=== PATIENT | female | born 1985 | race Caucasian/White ===

== ENCOUNTER 2017-04-05 10:17 | Outpatient (CLI) | payer BC ==
--- NOTE | 2017-04-05 11:10 | Non Stress Test Report ---
Non Stress Test Datetime Report Generated by CPN: 04/05/2017 11:09 DEMOGRAPHIC EGA NST: 38.2 INDICATION Indication for Study: Ordered by Provider MONITORING Monitor Explained: Monitor Explained; Test Explained; Patient Verbalized Understanding Time on Monitor: 04/05/2017 10:36 Time off Monitor: 04/05/2017 11:00 NST Duration: 24 NST INTERVENTIONS NST Interventions: PO Hydration Physician Notified NST: H. Boone, CNM BABY A: [id number] BABY A Movement : Present Contraction Frequency : none FHR Baseline : 130 Accelerations : 15X15 Decelerations : None Variability : Moderate 6-25bpm NST Review: Meets Criteria for Reactive NST NST Review and Verified By : BOBBY Thornton Results: Reactive NST REPORT Report Trigger: Send Report
[2017-04-05 12:12] LABS: APPEARANCE,URINE CLEAR; BILIRUBIN,URINE NEGATIVE (NEGATIVE); COLOR,URINE STRAW; GLUCOSE, URINE NEGATIVE (NEGATIVE); KETONES,URINE NEGATIVE (NEGATIVE); LEUKOCYTE ESTERASE,URINE NEGATIVE (NEGATIVE); NITRITE,URINE NEGATIVE (NEGATIVE); PROTEIN,URINE NEGATIVE (NEGATIVE); URINE SPECIFIC GRAVITY 1.003; UROBILINOGEN,URINE NEGATIVE mg/dL (<2.0)
[2017-04-05 12:29] LABS: URINE AMPHETAMINES SCREEN NEGATIVE; URINE BARBITURATES SCREEN NEGATIVE; URINE BENZODIAZEPINES SCREEN NEGATIVE; URINE COCAINE SCREEN NEGATIVE; URINE MARIJUANA (THC) SCREEN NEGATIVE; URINE METHADONE SCREEN NEGATIVE; URINE PHENCYCLIDINE SCREEN NEGATIVE
[2017-04-05 12:36] LABS: UR PRO/CREAT RATIO RESULT 0.8 mg/mg (0.0-0.2); URINE CREATININE 18.8 mg/dL (16-327); URINE PROTEIN 14.4 mg/dL (<12)
[2017-04-05] MEDS ORDERED: MEASLES,MUMPS&RUBELLA VACC/PF 0.5 ML VIAL SUBCUT PRN ×2 (19:23→20:45)
[2017-04-05] MEDS ORDERED: OXYCODONE-ACETAMINOPHEN 5-325 MG TABLET PO PRN ×4 (19:23→20:45)
[2017-04-05] MEDS ORDERED: SIMETHICONE 80 MG TAB.CHEW PO PRN ×2 (19:23→20:45)
[2017-04-05] MEDS ORDERED: DIPH/PERTUSS(ACELL)/TETANUS VAC/PF 0.5 ML SYR (>=10YO) IM PRN ×2 (19:23→20:45)
[2017-04-05] MEDS ORDERED: ACETAMINOPHEN 325 MG TABLET PO PRN ×2 (19:23→20:45)
[2017-04-05] MEDS ORDERED: PROMETHAZINE HCL INJ 25 MG/1 ML VIAL IV PRN ×2 (19:23→20:45)
[2017-04-05] MEDS ORDERED: OXYTOCIN/NORMAL SALINE 1,000 ML IV PRN ×2 (19:23→20:45)
[2017-04-05] MEDS ORDERED: RINGERS SOLUTION,LACTATED 1,000 ML IV PRN (19:24)
[2017-04-05] MEDS ORDERED: ZOLPIDEM TARTRATE 5 MG TABLET PO PRN (19:31)
[2017-04-05] MEDS ORDERED: BENZOCAINE/MENTHOL AEROSOL SPRAY 56 ML TOP PRN (19:31)
[2017-04-05] MEDS ORDERED: DIBUCAINE 1% OINTMENT 28 GM TP PRN (19:31)
[2017-04-05] MEDS ORDERED: ACETAMINOPHEN WITH CODEINE #3 TABLET PO PRN ×2 (19:31)
[2017-04-05] MEDS ORDERED: IBUPROFEN 800 MG TABLET PO SCH (22:00)
[2017-04-06] MEDS ORDERED: SENNOSIDES/DOCUSATE 8.6-50 MG 1 EACH TABLET PO SCH (10:00)
[2017-04-06] MEDS ORDERED: FERROUS SULFATE 325 MG TABLET PO SCH (10:00)
[2017-04-06] MEDS ORDERED: DOCUSATE SODIUM 100 MG CAPSULE PO SCH ×2 (10:00)
[2017-04-06] MEDS ORDERED: PRENATAL VITAMIN W DHA CAPSULE PO SCH ×2 (10:00)
== END 2017-04-05 12:08 | disposition home or self-care (01) ==
LOC: LC 10:17
PROVIDERS: ATTEND Obstetrics & Gynecology
PROC: 4A1HXCZ Monitoring of Products of Conception, Cardiac Rate, External Approach (ICD-10-PCS; principal; 2017-04-05)
DX: O14.93 Unspecified pre-eclampsia, third trimester (principal); Z3A.38 38 weeks gestation of pregnancy
CPT/HCPCS: 36415; 59025; 80053; 80307; 81001; 82570; 83615; 84156; 84550; 85025

== ENCOUNTER 2017-04-05 14:09 | Inpatient (IN) | payer BC ==
[2017-04-05] MEDS ORDERED: RINGERS SOLUTION,LACTATED 1,000 ML IV PRN (15:26)
[2017-04-05] MEDS ORDERED: RINGERS SOLUTION,LACTATED 300 ML IV ONE (15:26)
[2017-04-05] MEDS ORDERED: METOCLOPRAMIDE HCL INJ/PF 10 MG/2 ML SDV IV ONE (15:28)
[2017-04-05] MEDS ORDERED: CITRIC ACID/SODIUM CITRATE ORAL SOLN 15 ML UDCUP PO ONE (15:28)
[2017-04-05] MEDS ORDERED: FAMOTIDINE INJ/PF 20 MG/2 ML SDV IV ONE ×2 (15:28→16:47)
[2017-04-05 15:59] LABS: ABSOLUTE BASOPHILS # (AUTO) 0.1 10^3/uL (0.0-0.2); ABSOLUTE LYMPHOCYTES (AUTO) 2.2 10^3/uL (0.5-4.7); ABSOLUTE MONOCYTES (AUTO) 0.4 10^3/uL (0.1-1.4); ABSOLUTE NEUT (AUTO) 8.1 10^3/uL (1.7-8.2); BASOPHILS % (AUTO) 0.8 % (0-2); EOSINOPHILS % (AUTO) 0.5 % (0-6); HEMOGLOBIN 13.4 g/dL (12.0-15.5); LYMPHOCYTES % (AUTO) 20.1 % (13-45); MEAN CORPUSCULAR HEMOGLOBIN 32.7 pg (27.0-33.4); MEAN CORPUSCULAR HGB CONC 34.4 g/dL (32.0-36.0); MEAN CORPUSCULAR VOLUME 95 fl (80-97); MONOCYTES % (AUTO) 3.3 % (3-13); PLATELET COUNT 228 10^3/uL (150-450); RED CELL DISTRIBUTION WIDTH 13.7 % (11.5-14.0); SEGMENTED NEUTROPHILS % (AUTO) 75.3 % (42-78); TOTAL CELLS COUNTED % (AUTO) 100 %; WHITE BLOOD COUNT 10.7 10^3/uL (4.0-10.5)
[2017-04-05 16:19] LABS: ALANINE AMINOTRANSFERASE 28 U/L (9-52); ALBUMIN 3.4 g/dL (3.5-5.0); ALKALINE PHOSPHATASE 245 U/L (38-126); ANION GAP 9 (5-19); ASPARTATE AMINO TRANSFERASE 17 U/L (14-36); BILIRUBIN,DIRECT 0.3 mg/dL (0.0-0.4); BILIRUBIN,TOTAL 0.4 mg/dL (0.2-1.3); BLOOD UREA NITROGEN 8 mg/dL (7-20); CALCIUM 8.9 mg/dL (8.4-10.2); CARBON DIOXIDE 23 mmol/L (22-30); CHLORIDE 105 mmol/L (98-107); GLUCOSE 119 mg/dL (75-110); LDH 418 U/L (313-618); POTASSIUM 3.7 mmol/L (3.6-5.0); SODIUM 137.1 mmol/L (137-145); TOTAL PROTEIN 6.1 g/dL (6.3-8.2); URIC ACID 5.4 mg/dL (2.5-6.2)
[2017-04-05] MEDS ORDERED: CITRIC ACID/SODIUM CITRATE ORAL SOLN 15 ML UDCUP ONE (16:46)
[2017-04-05] MEDS ORDERED: METOCLOPRAMIDE HCL INJ/PF 10 MG/2 ML SDV ONE (16:46)
[2017-04-05] MEDS ORDERED: CEFAZOLIN 2 GM/D5W RTU 2 GM/50 ML RTUPB IV ONE (16:47)
[2017-04-05] MEDS ORDERED: OXYTOCIN 10 UNIT/ML VIAL ONE (17:14)
[2017-04-05] MEDS ORDERED: BUPIVACAINE HCL/DEX-WATER/PF 15 MG/2 ML AMPULE ONE (17:14)
[2017-04-05] MEDS ORDERED: OXYTOCIN/NORMAL SALINE 20 UNIT/1,000 ML RTUINJ ONE (17:14)
[2017-04-05] MEDS ORDERED: PHENYLEPHRINE HCL INJ/PF 10 MG/1 ML SDV ONE (17:41)
[2017-04-05] MEDS ORDERED: ONDANSETRON HCL INJ/PF 4 MG/2 ML SDV ONE (17:41)
[2017-04-05] MEDS ORDERED: PROMETHAZINE HCL INJ 25 MG/1 ML VIAL IV PRN (18:32)
[2017-04-05] MEDS ORDERED: OXYCODONE-ACETAMINOPHEN 5-325 MG TABLET PO PRN ×2 (18:32)
[2017-04-05] MEDS ORDERED: MEASLES,MUMPS&RUBELLA VACC/PF 0.5 ML VIAL SUBCUT PRN (18:32)
[2017-04-05] MEDS ORDERED: ACETAMINOPHEN 325 MG TABLET PO PRN (18:32)
[2017-04-05] MEDS ORDERED: ACETAMINOPHEN 100 ML IV PRN (18:32)
[2017-04-05] MEDS ORDERED: HYDROMORPHONE HCL INJ/PF 2 MG/ML AMPULE IV PRN (18:32)
[2017-04-05] MEDS ORDERED: OXYTOCIN/NORMAL SALINE 20 UNIT/1,000 ML RTUINJ IV PRN (18:32)
[2017-04-05] MEDS ORDERED: SIMETHICONE 80 MG TAB.CHEW PO PRN (18:32)
[2017-04-05] MEDS ORDERED: DIPH/PERTUSS(ACELL)/TETANUS VAC/PF 0.5 ML SYR (>=10YO) IM PRN (18:32)
[2017-04-05] MEDS ORDERED: ACETAMINOPHEN 100 ML IV ONE (18:40)
--- NOTE | 2017-04-05 19:28 | Delivery Summary ---
Del Sum A-C Datetime Report Generated by CPN: 04/05/2017 19:28 DELIVERY PERSONNEL DELIVERY PERSONNEL: [id number] Delivery Doctor:: Jolene Finnegan MD Anesthesiologist:: Betzaida Barrios MD HARNESS INSPECTOR:: Akbar Benitez Labor and Delivery Nurse:: Dora Lew RNoffshore wind operations manager Nurse:: Kelli Finnegan RN Box Car Bracer:: Dora Lew RN Nursery Nurse:: Jasmyne Brownlee RN Nursery Nurse:: Claire Srivastava RN Salon Shampoo Assistant/GOVERNMENT AUDITOR: ST Ritesh Salon Shampoo Assistant/GOVERNMENT AUDITOR: Tara Canseco, POTTERY KILN BUILDER MATERNAL INFORMATION Delivery Anesthesia: Spinal Medications After Delivery: Pitocin Drip 20 Units/1000ml NSS Estimated Blood Loss (ml): 700 Maternal Complications: Other Other Maternal Complications: Pre-E LABOR SUMMARY EDC: 04/17/2017 00:00 No. Babies in Womb: 1 Attempted: No Labor Anesthesia: None LABOR INFORMATION Reason for Induction: Not Applicable Oxytocin: N/A Group B Beta Strep: positive Antibiotics # of Doses: 1 Antibiotics Time of Last Dose: 165 Name of Antibiotic Given: Ancef Steroids Given: None Reason Steroids Not Administered: Not Applicable MEMBRANES Membranes Rupture Method: Artificial Rupture of Membranes: 04/05/2017 17:28 Length of Rupture (hr): 0.02 Amniotic Fluid Color: Clear Amniotic Fluid Amount: None Amniotic Fluid Odor: Normal STAGES OF LABOR Stage 3 hr: 0 Stage 3 min: 1 VAGINAL DELIVERY Episiotomy: None Laceration #1: None Laceration Extension #1: N/A Laceration Repair: Not Applicable Sponge Count Correct: N/A Sharps Count Correct: N/A CSECTION DELIVERY Primary Indication: Repeat Secondary Indication: Preeclampsia CSection Urgency: Non-Scheduled CSection Incidence: Repeat Labor: No Labor Elective: Nonelective CSection Incision: Lower Uterine Transverse BABY A INFORMATION Infant Delivery Date/Time: 04/05/2017 17:29 Method of Delivery: Born in Route : No : N/A Forceps: N/A Vacuum Extraction: N/A Shoulder Dystocia : No PRESENTATION/POSITION BABY A Presentation: Cephalic Cephalic Presentation: Vertex Breech Presentation: N/A PLACENTA INFORMATION BABY A Placenta Delivery Time : 04/05/2017 17:30 Placenta Method of Delivery: Manual Removal Placenta Status: Delivered SCORES BABY A Heart Rate 1 min: >100 bpm Resp Effort 1 min: Slow, Irregular Reflex Irritability 1 min: Cough or Sneeze or Pulls Away Muscle Tone 1 min: Active Motion Color 1 min: Body Churdan, Extremities Blue Resuscitation Effort 1 min: Tactile Stimulation SCORE 1 MIN: 8 Heart Rate 5 min: >100 bpm Resp Effort 5 min: Good Cry Reflex Irritability 5 min: Cough or Sneeze or Pulls Away Muscle Tone 5 min: Active Motion Color 5 min: Body Churdan, Extremities Blue Resuscitation Effort 5 min: Tactile Stimulation SCORE 5 MIN: 9 INFANT INFORMATION BABY A Gestational Age at Delivery: 38.2 Gestational Status: Early Term- 37- 38.6 Weeks Outcome : Liveborn Infant Condition : Stable Sex: Male IDENTIFICATION BABY A Verification Date/Time: 04/05/2017 17:27 ID Band Number: [id number] Mother's Name Verified: Yes Infant RN Verifying : Linn Finnegan Luan Lew, RN WEIGHT/LENGTH BABY A Infant Birthweight (gm): 3145 Weight (lb): 6 Weight (oz): 15 Length (in): 19.75 Infant Length (cm): 50.17 CORD INFORMATION BABY A No. Cord Vessels: 3 Nuchal Cord : N/A Cord Blood Taken: Yes-For Storage (Mom's Blood type +) Infant Suction: Mouth ASSESSMENT BABY A Complications: None Physical Findings at Delivery: Within Normal Limits Respirations: Appears Normal Skin to Skin: Yes Abalone Sheller/ALS Called : No Care By: Jasmyne Brownlee RN Transferred To: [facility] BABY B INFORMATION : N/A
[2017-04-05] MEDS ORDERED: ZOLPIDEM TARTRATE 5 MG TABLET PO PRN (19:43)
[2017-04-05] MEDS ORDERED: BENZOCAINE/MENTHOL AEROSOL SPRAY 56 ML TOP PRN (19:43)
[2017-04-05] MEDS ORDERED: ACETAMINOPHEN WITH CODEINE #3 TABLET PO PRN ×2 (19:43)
[2017-04-05] MEDS ORDERED: DIBUCAINE 1% OINTMENT 28 GM TP PRN (19:43)
[2017-04-05] MEDS ORDERED: FENTANYL CITRATE INJ/PF 100 MCG/2 ML AMPUL ONE (19:55)
--- NOTE | 2017-04-05 20:37 | Admission Physical ---
Datetime Report Generated by CPN: 04/05/2017 20:37 CURRENT ADMISSION Chief Complaint: Other Indication for Induction: Not Applicable; PreEclampsia Indication for Induction: Term, Intrauterine ; Medical Complication Admit Plan: Admit to Unit; Initiate Section Protocol Admit Plan- Other: patient sent for PreE w/u due to elevated pressures at office visit today. W/U revealed prot/creat of 0.8. Patient has h/o HELLP in last . Is a surrogate and is desiring to await arrival of intended parents who are in [place] at this time. ALLERGIES Medication Allergies: No Medication Allergies: No Known Allergies (04/05/2017) Latex: No Latex Allergies Food Allergies: denies Environmental Allergies: denies OBSTETRICAL HISTORY EDC: 04/17/2017 00:00 : 6 Para: 3 Term: 3 : 0 SAB: 2 IAB: 0 Ectopic: 0 Livin Cesareans: 1 VBACs: 0 Multiple Births: 0 Gestational Diabetes: No Rh Sensitization: No Incompetent Cervix: No SENAIT: No Infertility: No ART Treatment: No Uterine Anomaly: No IUGR: No Hx Previous C/S: Yes Macrosomia: No Hx Loss/Stillborn: No PIH: No Hx : No Placenta Previa/Abruption: No Depression/PP Depression: No PTL/PROM: No Post Hemorrhage: No Current Procedures: Ultrasound; NST Obstetrical History Comments: G1: 2008 8lbs 6 oz G2: 2009 9lbs 9oz G3: 2015 distress, severe pre-e, HELLP syndrome SEE RECORDS Alcohol: No Marijuana : No Cocaine: No Other Illicit Drugs: No Cigarettes: Never Smoker. [id number] MEDICAL HISTORY Diabetes: No Blood Transfusion: No Pulmonary Disease (Asthma, TB): No Breast Disease: No Hypertension: No Business Services Sales Representative Surgery: No Heart Disease: No Hosp/Surgery: Yes Autoimmune Disorder: No Anesthetic Complications: No Kidney Disease: No Abnormal Pap Smear: No Neuro/Epilepsy: No Psychiatric Disorders: No Other Medical Diseases: No Hepatitis/Liver Disease: No Significant Family History: No Varicosities/Phlebitis: No Trauma/Violence : No Thyroid Dysfunction: No Medical History Comments: 1992 tonsillectomy 2015 INFECTIOUS HISTORY Gonorrhea: No Genital Herpes: No Chlamydia: No Tuberculosis: No Syphilis: No Hepatitis: No HIV/AIDS Exposure: No Rash or Viral Illness: No HPV: No PHYSICAL EXAM General: Normal HEENT: Normal Neurologic: Normal Thyroid: Normal Heart: Normal Lungs: Normal Breast: Normal Back: Normal Abdomen: Normal Genitourinary Exam: Normal Extremities: Normal DTRs: Normal Pelvic Type: Adequate Vital Signs: Reviewed FETUS A EGA: 38.2 Monitoring: External US FHR- Baseline: 150 Variability: Moderate 6-25bpm Accelerations: 15X15 Decelerations: None FHR Category: Category I Estimated Weight (gm): 3700 Presentation: Vertex Admit Comment: d/w patient with RN present that although at this time she is stable I did not think it prudent to await until tomorrow for delivery in order for the intended parents to arrive due to risks of rapid decompensation. Patient did just eat [employer] minutes prior to arrival. I discussed with Dr. Barrios and we will wait 2 hours for digestion in light of her current stability however will proceed sooner if she begins to decompensate. PLANS FOR LABOR AND DELIVERY Labor and Delivery: None Pain Management: Spinal Feeding Preference: Breast Benefit of Breast Feed Discussed: Yes INFORMED CONSENT Signature: with User ID: [email or web address]
[2017-04-05] MEDS ORDERED: IBUPROFEN 800 MG TABLET PO SCH (22:00)
[2017-04-05] MEDS: KETOROLAC TROMETHAMINE INJ/PF 30 MG/1 ML SDV IV SCH (23:00)
[2017-04-06] MEDS: KETOROLAC TROMETHAMINE INJ/PF 30 MG/1 ML SDV IV SCH ×2 (05:59→14:04)
[2017-04-06 08:08] LABS: HEMATOCRIT 34.2 % (36.0-47.0); MEAN CORPUSCULAR HEMOGLOBIN 33.2 pg (27.0-33.4); MEAN CORPUSCULAR VOLUME 95 fl (80-97); PLATELET COUNT 199 10^3/uL (150-450); RED CELL DISTRIBUTION WIDTH 13.5 % (11.5-14.0); WHITE BLOOD COUNT 9.3 10^3/uL (4.0-10.5)
[2017-04-06] MEDS: PRENATAL VITAMIN W DHA CAPSULE PO SCH (09:42)
[2017-04-06] MEDS: DOCUSATE SODIUM 100 MG CAPSULE PO SCH ×2 (09:42→17:38)
[2017-04-06] MEDS: SENNOSIDES/DOCUSATE 8.6-50 MG 1 EACH TABLET PO SCH (09:42)
[2017-04-06] MEDS: FERROUS SULFATE 325 MG TABLET PO SCH ×2 (09:43→17:38)
--- NOTE | 2017-04-06 11:23 | PDOC PROGRESS REPORT ---
Subjective-OB Progress Note for:: 04/06/17 Subjective: without difficulty. biological parents on the way. reports bleeding slowing, tolerating diet and activity, pain controlled with current meds. no needs expressed. Physical Exam (OB) Vital Signs: Temp Pulse Resp BP Pulse Ox 98.4 F 70 18 120/72 98 04/06/17 07:55 04/06/17 07:55 04/06/17 07:55 04/06/17 07:55 04/06/17 07:55 Intake & Output 04/05/17 04/06/17 04/07/17 06:59 06:59 06:59 Output Total 700 Balance -700 Weight 96.9 kg - PIH/Pre-Eclampsia DTR's: 2 + Clonus: Negative Headache: Absent Epigastric Pain: No Visual Changes: No - Dressing Removed: No Incision: Draining - has come loose on left side, RN asked to change op site - Abdomen Description: Soft Hernia Present: No Fundal Description: Firm Fundal Height: u/u - u/2 - Abdominal Distension: No distension Tenderness: Nontender - Extremities Lower extremities: Carie's sign - neg Calf: Normal, Nontender Objective-Diagnostic Laboratory: 04/06/17 07:40 04/05/17 15:48 04/05/17 04/05/17 04/05/17 15:48 15:48 15:48 WBC 10.7 H RBC 4.10 Hgb 13.4 Hct 39.0 MCV 95 MCH 32.7 MCHC 34.4 RDW 13.7 Plt Count 228 Seg Neutrophils % 75.3 Lymphocytes % 20.1 Monocytes % 3.3 Eosinophils % 0.5 Basophils % 0.8 Absolute Neutrophils 8.1 Absolute Lymphocytes 2.2 Absolute Monocytes 0.4 Absolute Eosinophils 0.0 Absolute Basophils 0.1 Sodium 137.1 Potassium 3.7 Chloride 105 Carbon Dioxide 23 Anion Gap 9 BUN 8 Creatinine 0.60 Est GFR ( Amer) > 60 Est GFR (Non-Af Amer) > 60 Glucose 119 H Uric Acid 5.4 Calcium 8.9 Total Bilirubin 0.4 AST 17 ALT 28 Alkaline Phosphatase 245 H Total Protein 6.1 L Albumin 3.4 L Blood Type A POSITIVE Antibody Screen TNP 04/06/17 07:40 WBC 9.3 RBC 3.60 L Hgb 12.0 Hct 34.2 L MCV 95 MCH 33.2 MCHC 35.0 RDW 13.5 Plt Count 199 Seg Neutrophils % Lymphocytes % Monocytes % Eosinophils % Basophils % Absolute Neutrophils Absolute Lymphocytes Absolute Monocytes Absolute Eosinophils Absolute Basophils Sodium Potassium Chloride Carbon Dioxide Anion Gap BUN Creatinine Est GFR ( Amer) Est GFR (Non-Af Amer) Glucose Uric Acid Calcium Total Bilirubin AST ALT Alkaline Phosphatase Total Protein Albumin Blood Type Antibody Screen Assessment and Plan(PN) - Assessment and Plan (1) S/P repeat low transverse Is this a current diagnosis for this admission?: Yes (2) Surrogate Is this a current diagnosis for this admission?: Yes - Time Spent with Patient Time with patient: Less than 15 minutes Medications reviewed and adjusted accordingly: Yes - Disposition Anticipated Discharge: Home Within: within 36 hours
[2017-04-06] MEDS: IBUPROFEN 800 MG TABLET PO SCH (23:34)
[2017-04-07] MEDS: IBUPROFEN 800 MG TABLET PO SCH ×2 (05:11→11:24)
--- NOTE | 2017-04-07 09:59 | PDOC PROGRESS REPORT ---
Subjective-OB Progress Note for:: 04/07/17 Subjective: Ready for discharge. Physical Exam (OB) Vital Signs: Temp Pulse Resp BP Pulse Ox 98.3 F 82 16 138/89 H 100 04/07/17 08:15 04/07/17 08:15 04/07/17 08:15 04/07/17 08:15 04/07/17 08:15 Intake & Output 04/06/17 04/07/17 04/08/17 06:59 06:59 06:59 Output Total 700 Balance -700 Weight 96.9 kg - PIH/Pre-Eclampsia DTR's: 2 + Clonus: Negative Headache: Absent Epigastric Pain: No Visual Changes: No - Dressing Removed: No - op site Incision: Dressing - Lochia Lochia Amount: Scant < 10 ml Lochia Color: Rubra/Red - Abdomen Description: Soft Hernia Present: No Bowel Sounds: Normoactive Flatus Presence: Present Stool: Yes Fundal Description: Firm, Midline Fundal Height: u/u - u/2 Objective-Diagnostic Laboratory: 04/06/17 07:40 04/05/17 15:48 Assessment and Plan(PN) - Time Spent with Patient Medications reviewed and adjusted accordingly: Yes - Disposition Anticipated Discharge: Home
--- NOTE | 2017-04-07 10:03 | PDOC DISCHARGE SUMMARY ---
Final Diagnosis Discharge Date: 04/07/17 - Final Diagnosis (1) Positive GBS test Is this a current diagnosis for this admission?: Yes (2) S/P repeat low transverse Is this a current diagnosis for this admission?: Yes (3) Surrogate Is this a current diagnosis for this admission?: Yes Discharge Data - Discharge Medication Prescriptions: Oxycodone HCl/Acetaminophen [Percocet 5-325 mg Tablet] 1 tab PO Q4HP PRN #20 tablet PRN Reason: Ibuprofen [Motrin 800 mg Tablet] 800 mg PO Q6 #30 tablet Home Medications: [place]-3/Dha/Epa/Fish Oil [Fish Oil 1,000 mg Softgel] 1 cap PO DAILY 04/05/17 Vit Calc,Iron,Folic [ Vitamins] 1 each PO DAILY 04/05/17 Ibuprofen [Motrin 800 mg Tablet] 800 mg PO Q6 #30 tablet 04/07/17 Oxycodone HCl/Acetaminophen [Percocet 5-325 mg Tablet] 1 tab PO Q4HP PRN #20 tablet 04/07/17 Gestational Age: 38.2 wks Reason(s) for Admission: Ceasarean Section-Repeat, PIH Procedures: Ultrasound Intrapartum Procedure(s): : Low Cervical, Transverse - [place] Data Baby 1 Male at 1 minute: 8 at 5 minutes: 9 Weight: 3.147 kg Home with Mother: No - Surrogate Complications: No - Diagnosis Test Laboratory: Temp Pulse Resp BP Pulse Ox 98.3 F 82 16 138/89 H 100 04/07/17 08:15 04/07/17 08:15 04/07/17 08:15 04/07/17 08:15 04/07/17 08:15 04/05/17 04/06/17 15:48 07:40 RBC 4.10 3.60 L Hgb 13.4 12.0 Hct 39.0 34.2 L - Discharge information/Instructions Discharge Activity: Activity As Tolerated, Balance Activity w/Rest, No Lifting Over 10 Pounds, No Lifting/Push/Pulling, Pelvic Rest, Slowly Increase Activity, No tub bath Discharge Diet: Regular Disposition: HOME, SELF-CARE Follow up with: [facility] in: 1, Weeks
[2017-04-07] MEDS: PRENATAL VITAMIN W DHA CAPSULE PO SCH (11:13)
[2017-04-07] MEDS: DOCUSATE SODIUM 100 MG CAPSULE PO SCH (11:13)
[2017-04-07] MEDS: SENNOSIDES/DOCUSATE 8.6-50 MG 1 EACH TABLET PO SCH (11:13)
[2017-04-07] MEDS: FERROUS SULFATE 325 MG TABLET PO SCH (11:13)
[2017-04-07 14:19] LABS: ABSOLUTE BASOPHILS # (AUTO) 0.1 10^3/uL (0.0-0.2); ABSOLUTE EOSINOPHILS # (AUTO) 0.2 10^3/uL (0.0-0.6); ABSOLUTE LYMPHOCYTES (AUTO) 2.4 10^3/uL (0.5-4.7); ABSOLUTE MONOCYTES (AUTO) 0.4 10^3/uL (0.1-1.4); ABSOLUTE NEUT (AUTO) 6.7 10^3/uL (1.7-8.2); BASOPHILS % (AUTO) 0.6 % (0-2); EOSINOPHILS % (AUTO) 1.7 % (0-6); HEMATOCRIT 37.5 % (36.0-47.0); LYMPHOCYTES % (AUTO) 24.3 % (13-45); MEAN CORPUSCULAR HEMOGLOBIN 33.1 pg (27.0-33.4); MEAN CORPUSCULAR HGB CONC 34.7 g/dL (32.0-36.0); MEAN CORPUSCULAR VOLUME 95 fl (80-97); MONOCYTES % (AUTO) 4.3 % (3-13); PLATELET COUNT 247 10^3/uL (150-450); RED BLOOD COUNT 3.94 10^6/uL (3.72-5.28); RED CELL DISTRIBUTION WIDTH 13.8 % (11.5-14.0); SEGMENTED NEUTROPHILS % (AUTO) 69.1 % (42-78); TOTAL CELLS COUNTED % (AUTO) 100 %; WHITE BLOOD COUNT 9.7 10^3/uL (4.0-10.5)
[2017-04-07 14:33] LABS: ALANINE AMINOTRANSFERASE 29 U/L (9-52); ALBUMIN 3.2 g/dL (3.5-5.0); ALKALINE PHOSPHATASE 183 U/L (38-126); ANION GAP 6 (5-19); ASPARTATE AMINO TRANSFERASE 20 U/L (14-36); BILIRUBIN,DIRECT 0.3 mg/dL (0.0-0.4); BILIRUBIN,TOTAL 0.3 mg/dL (0.2-1.3); BLOOD UREA NITROGEN 7 mg/dL (7-20); CALCIUM 9.6 mg/dL (8.4-10.2); CARBON DIOXIDE 26 mmol/L (22-30); CHLORIDE 107 mmol/L (98-107); GLUCOSE 82 mg/dL (75-110); LDH 526 U/L (313-618); SODIUM 138.8 mmol/L (137-145); TOTAL PROTEIN 5.8 g/dL (6.3-8.2); URIC ACID 4.7 mg/dL (2.5-6.2)
[2017-04-07 16:45] VITALS: BP 130/80
--- NOTE | 2017-04-28 16:49 | OPERATIVE REPORT E ---
Operative Report NAME: JANETTE LÓPEZ : 1985 AGE: 31Y DATE OF SURGERY: 04/05/2017 ROOM: 215 PREOPERATIVE DIAGNOSES: IUP AT 38 WEEKS, 2 DAYS, PREVIOUS , PREECLAMPSIA, HISTORY OF HELLP SYNDROME, SURROGATE . POSTOPERATIVE DIAGNOSES: IUP AT 38 WEEKS, 2 DAYS, PREVIOUS , PREECLAMPSIA, HISTORY OF HELLP SYNDROME, SURROGATE . OPERATION: Repeat low transverse hysterotomy section. SURGEON: KAITLYN MCALLISTER M.D. ANESTHESIA: Dr. Barrios with a spinal. FINDINGS: A female in the cephalic presentation with 's of 8 and 9, normal uterus, tubes, and ovaries. ESTIMATED BLOOD LOSS: 600 mL. SPECIMENS REMOVED: None. PROCEDURE: The patient was taken to the operating room, prepared and draped in a normal sterile fashion in the supine position with a leftward tilt. A transverse skin incision was made following the patient's previous scar with a scalpel, and carried through to the underlying layer of fascia with the same scalpel. The fascia was excised in the midline and extended laterally with Swanson's. The rectus muscle was then dissected from the fascia sharply with Swanson's, then the rectus muscle was divided and peritoneal cavity was entered bluntly. A bladder blade was inserted with good visualization of the bladder and the uterus. The hysterotomy was nicked with a scalpel and extended laterally with surgeon finger fracture. The was then delivered atraumatically. The nose and mouth were suctioned with a suction bulb, and the cord was clamped and cut, and handed off to a waiting chocolate refining roller. The cord blood was collected, and the placenta was removed manually. The uterus was exteriorized and cleared of clots and debris. The hysterotomy was closed with 0 Monocryl in a running locked fashion. A second layer of the same suture was used to imbricate to ensure hemostasis. The uterus was returned to the abdomen. The peritoneal cavity was cleared of clots and debris. The rectus muscle and peritoneum were reapproximated with a mattress stitch of 2-0 chromic. The fascia was closed with #0 Vicryl. Subcutaneous layer was closed with plain catgut, and the skin was closed with 4-0 Vicryl. The patient tolerated the procedure well. Sponge, lap, and needle counts correct x2. The patient was taken to recovery in stable condition. DICTATING PHYSICIAN: KAITLYN MCALLISTER M.D. [id number] PHY#: [id number] ID: [id number] JOB#: [id number] ACCT: [id number] cc:KAITLYN MCALLISTER M.D. >
== END 2017-04-07 16:50 | disposition home or self-care (01) | DRG 766 ==
LOC: LC 14:09 → LR 14:47 → 2S 20:35
PROVIDERS: ADMIT Obstetrics & Gynecology; ATTEND Obstetrics & Gynecology
PROC: 10D00Z1 Extraction of Products of Conception, Low, Open Approach (ICD-10-PCS; principal; 2017-04-05)
PROC: 4A1HX4Z Monitoring of Products of Conception, Cardiac Electrical Activity, External Approach (ICD-10-PCS; 2017-04-05)
DX: O14.94 Unspecified pre-eclampsia, complicating childbirth (principal); O99.824 Streptococcus B carrier state complicating childbirth; O34.211 Maternal care for low transverse scar from previous cesarean delivery; Z3A.38 38 weeks gestation of pregnancy; Z37.0 Single live birth
CPT/HCPCS: 1961; 36415; 80053; 83615; 84550; 85025; 85027; 86592; 86850; 86900; 86901; 90715; 94799; J0131; J0690; J1885; J2370; J2405; J2590; J2765; J3010; J3490; S0028